=== PATIENT | female | born 1955 | race Caucasian/White ===

== ENCOUNTER 2017-11-05 17:48 | Emergency (ER) | payer BC ==
[2017-11-05 18:29] VITALS: BP 159/88; PULSE 65; RESP 18; TEMP 98.1
--- NOTE | 2017-11-05 19:00 | ED ---
General Adult HPI - General Chief complaint: Skin/Abscess/Foreign Body Stated complaint: WASP BITE, SWELLING RT HIP Time Seen by Provider: 11/05/17 18:40 Source: patient, RN notes reviewed Mode of arrival: ambulatory Limitations: no limitations - History of Present Illness Initial comments: This is a 62-year-old female with no past medical history an ALLERGY to sulfa- based drugs who presents today with chief complaint of I was bit by a wasp 4 days ago. Patient states that on November 02 2017. She is with her grandson outdoors, near the sand when her grandson started screaming that there was a insect flying near him, she then felt something fly up her bathing suit coverup and pain to the right buttock. She did not see what kind of insect it was but believes it may have been a wasp. Pt stated that within a half and hour she had a large area of eyrthema surrounding the bite area. Pt used topical benadryl for itching and took advil PM at night for pain relief she stated that this helped. 2 days following night the patient had her daughter look at it who saw to breaking in the skin but no palpable stinger, the redness had gone down but there was still a small area surrounding the bites. When she noticed increasing warmth today and continued erythema she decided to come to the ER to make sure the area was not infected. Pt admitted to pain, warmth and erythema around area of bite. Pt denies fever, chills, drainage, difficulty breathing, swelling of tongue, shortness of breath, chest pain, back pain, abdominal pain, nausea or vomiting, numbness or tingling, dysuria or hematuria, constipation or diarrhea, headaches or visual changes, or any other complaints. - Related Data Previous Rx's Medication Instructions Recorded Acyclovir [Zovirax] 1 applic TOPICAL BID #1 tube 12/06/13 Cephalexin [Keflex] 500 mg PO Q6HR 5 Days #20 cap 11/05/17 Allergies Allergy/AdvReac Type Severity Reaction Status Date / Time Sulfa (Sulfonamide Allergy Rash/Hives Verified 11/05/17 18:29 Antibiotics) Review of Systems ROS Statement: Those systems with pertinent positive or pertinent negative responses have been documented in the HPI. ROS Other: All systems not noted in ROS Statement are negative. Constitutional: Denies: fever, chills ENT: Denies: ear pain Respiratory: Denies: cough Cardiovascular: Denies: chest pain, palpitations Gastrointestinal: Denies: abdominal pain, nausea, vomiting, diarrhea, constipation Genitourinary: Denies: urgency, dysuria, frequency, hematuria Musculoskeletal: Denies: back pain Skin: Reports: as per HPI, lesions, pruritus. Denies: rash Neurological: Denies: headache, weakness Past Medical History Past Medical History: No Reported History History of Any Multi-Drug Resistant Organisms: None Reported Past Surgical History: No Surgical Hx Reported Past Psychological History: No Psychological Hx Reported Smoking Status: Never smoker Past Alcohol Use History: None Reported Past Drug Use History: None Reported General Exam - General Exam Comments Initial Comments: General: The patient is awake and alert, in no distress, and does not appear acutely ill. Eye: Pupils are equal, round and reactive to light, extra-ocular movements are intact. No nystagmus. There is normal conjunctiva bilaterally. No signs of icterus. Ears, nose, mouth and throat: There are moist mucous membranes and no oral lesions. Neck: The neck is supple, there is no tenderness or JVD. Cardiovascular: There is a regular rate and rhythm. No murmur, rub or gallop is appreciated. Respiratory: Lungs are clear to auscultation, respirations are non-labored, breath sounds are equal. No wheezes, stridor, rales, or rhonchi. Musculoskeletal: Normal ROM, no tenderness. Strength 5/5. Sensation intact. Pulses equal bilaterally 2+. Neurological: A&O x 3. CN II-XII intact, There are no obvious motor or sensory deficits. Coordination appears grossly intact. Speech is normal. Skin: Skin is warm and dry and no rashes or lesions are noted. 8cm sharply demarcated area of indurated erythema surrounding two very small breaks in the skin- there is no evidence of drainage. Warmth to palpation, no areas of flutuance. Psychiatric: Cooperative, appropriate mood & affect, normal judgment. Limitations: no limitations Course Vital Signs 11/05/17 18:26 Temperature 98.1 F Pulse Rate 65 Respiratory 18 Rate Blood Pressure 159/88 O2 Sat by Pulse 97 Oximetry Medical Decision Making - Medical Decision Making Area of erythema was outlined using a pen. Patient was given a prescription of Keflex 500 mg 4 times a day for 5 days for possible cellulitis. Case was discussed in detail with Dr. Mclaughlin who agreed with plan. Pt was educated on appropriate antibiotic use as well as on the signs of worsening infection. In addition pt was told she may take OTC benadryl as directed on package for further relief from reaction/itching-however she did not want a prescription from us today. She may continue to take the Advil PM at night as needed for pain relief. Pt is to follow-up with PCP in 1-2 days. Pt agreed with plan and was discharged in stable condition, VS WNL. Disposition Clinical Impression: Sting, wasp, Cellulitis of right buttock Disposition: HOME SELF-CARE Condition: Good Instructions: Cellulitis (ED), Insect Bite or Sting (ED) Additional Instructions: Please use medication as discussed. Please follow-up with family doctor in the next 2 days of symptoms have not improved. Please return to emergency room if the symptoms increase or worsen or for any other concerns. Prescriptions: Cephalexin [Keflex] 500 mg PO Q6HR 5 Days #20 cap Is patient prescribed a controlled substance at d/c from ED?: No Referrals: Nonstaff,Physician [Primary Care Provider] - 1-2 days Time of Disposition: 18:58
== END 2017-11-05 19:10 | disposition home or self-care (01) ==
LOC: EC 17:48
DX: T63.461A Toxic effect of venom of wasps, accidental (unintentional), initial encounter (principal); L03.317 Cellulitis of buttock; Z88.2 Allergy status to sulfonamides
CPT/HCPCS: 99283

== ENCOUNTER → 2018-12-29 | Outpatient (CLI) | payer BC | END | disposition home or self-care (01) | LOC: LABWHC1 08:18 | PROVIDERS: ATTEND Psychiatry & Neurology Child & Adolescent Psychiatry | DX: F95.2 Tourette's disorder (principal) | CPT/HCPCS: 36415; 82465; 82947; 84478 ==